=== PATIENT | female | born 1990 | race Two or more races ===

== ENCOUNTER 2022-05-07 04:04 | Emergency (ER) | payer OTHER ==
[~2022-05-07] VITALS: Ht 160 cm; Wt 52.2 kg
[2022-05-07] MEDS ORDERED: ALBUTEROL0.63 MG/3 IH (04:16)
[2022-05-07] MEDS ORDERED: MEDROLPACK PO (05:33)
[2022-05-07] MEDS ORDERED: SYMBICORT 80/10.2 GM IH (05:33)
[2022-05-07] MEDS ORDERED: PROAIR HFA8.5 GM IH (05:33)
== END 2022-05-07 05:47 | disposition home or self-care (01) ==
LOC: ER 04:04
DX: J45.901 Unspecified asthma with (acute) exacerbation (principal); R06.00 Dyspnea, unspecified; Z20.822 Contact with and (suspected) exposure to COVID-19